=== PATIENT | female | born 1975 | race Two or more races ===

== ENCOUNTER 2025-01-04 17:38 | Emergency (ER) | payer OTHER ==
[~2025-01-04] VITALS: Ht 165.1 cm; Wt 73.6 kg
--- NOTE | 2025-01-04 18:28 | ED.PDOC ---
History of Present Illness HPI Comments 49 year old female came to ER due to dizziness. Patient has no medical problems. Comes to the ER with multiple complaints, states for the past 4 days she has been feeling dizzy and felt like the right side of her body felt numb. Denies any unilateral weakness. Also complaining of headaches, palpitations, epigastric pain and nausea. Denies any fever or urinary symptoms. Persistence of dizziness prompted check up at the ER. Chief Complaint: Dizziness Time Seen by MD: 18:27 Reviewed Notes: Nurses Notes Allergies: Coded Allergies: NO KNOWN ALLERGIES (Unverified , 01/04/25) Information Source: Patient Mode of Arrival: Ambulatory Severity: Moderate Timing: Days Duration: Since onset Prehospital treatment: None Review of Systems REVIEW OF SYSTEMS: No fever, no chills, or fatigue HEENT: No sore throat, no earache, no congestion, no neck pain. Cardiac: No chest pain. (+) palpitations. Lungs: No shortness of breath, no cough. GI: (+) nausea, no vomiting, no diarrhea, no constipation, (+) abdominal pain : No dysuria, frequency, or urgency. No hematuria. Musculoskeletal: No joint pain , no joint swelling, no extremity edema. Skin: No rash, no itching. Neuro: (+) headache, (+) dizziness, (+) right sided numbness, no weakness Vital Signs Vital Signs Date Time Temp Pulse Resp B/P (MAP) Pulse Ox O2 Delivery O2 Flow Rate FiO2 01/04/25 21:51 86 16 97 Room Air* 0 21 01/04/25 21:51 98.2 134/82 (99) 98.2 Physical Exam General: Awake, alert and oriented. No acute distress. Skin: Skin in warm, dry and intact. Appropriate color for ethnicity. Nailbeds pink with no cyanosis. HEENT: The head is normocephalic and atraumatic. Conjunctivae are clear without exudates or hemorrhage. Sclera is non-icteric. EOM are intact. No signs of nystagmus. Eyelids are normal in appearance without swelling or lesions. Oral mucosa is pink and moist Neck: The neck is supple with normal range of motion. No JVD. Cardiac: Heart rate and rhythm are normal. No murmurs, gallops, or rubs are auscultated. Respiratory: No signs of respiratory distress. Lung sounds are clear in all lobes bilaterally without rales, ronchi, or wheezes. Abdominal: Abdomen is soft, non-tender without distention. Bowel sounds are present and normoactive in all four quadrants. Extremities: Upper and lower extremities are atraumatic in appearance without deformity or edema. Neurological: The patient is awake, alert and oriented to person, place, and time with normal speech. Speech is clear. There is no facial asymmetry. Normal [id number] test. Patient reports diminished sensation on her right face, right upper extremity, right lower extremity. She has a normal gait. She is able to stand on each leg individually without difficulty. Psychiatric: Appropriate mood and affect. Good judgement and insight. No visual or auditory hallucinations. 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 Was a procedure done?: No Differential Dx Considerations may include: Differential diagnoses considered include but are not limited to anemia, el ectrolyte imbalance, TIA, CVA, gastritis, anxiety, ACS, migraine, viral syndrome, dehydration other X-Ray, Labs, Meds, VS Vital Signs Date Time Temp Pulse Resp B/P (MAP) Pulse Ox O2 Delivery O2 Flow Rate FiO2 01/04/25 21:51 86 16 97 Room Air* 0 21 01/04/25 21:51 98.2 85 16 134/82 (99) 97 98.2 01/04/25 18:36 98.2 74 16 119/80 (93) 97 Lab Test 01/04/25 18:53 01/04/25 18:23 Range/Units White Blood Count 9.5 4.4-10.8 10^3/uL Red Blood Count 4.55 4.0-5.20 10^6/uL Hemoglobin 14.1 12.2-16.2 g/dL Hematocrit 40.8 36.0-46.0 % Mean Corpuscular Volume 89.7 80.0-100.0 fL Mean Corpuscular Hemoglobin 31.1 28.0-32.0 pg Mean Corpuscular Hemoglobin Concent 34.7 32.0-36.0 g/dL Red Cell Distribution Width 13.6 11.8-14.3 % Platelet Count 322 140-450 10^3/uL Mean Platelet Volume 8.0 6.9-10.8 fL Neutrophils (%) (Auto) 57.9 37.0-80.0 % Lymphocytes (%) (Auto) 32.5 10.0-50.0 % Monocytes (%) (Auto) 6.1 0.0-12.0 % Eosinophils (%) (Auto) 2.7 0.0-7.0 % Basophils (%) (Auto) 0.8 0.0-2.0 % Neutrophils # (Auto) 5.5 1.6-8.6 10 ^3/uL Lymphocytes # (Auto) 3.1 0.4-5.4 10 ^3/uL Monocytes # (Auto) 0.6 0-1.3 10 ^3/uL Eosinophils # (Auto) 0.3 0-0.8 10 ^3/uL Basophils # (Auto) 0.1 0-0.2 10 ^3/uL Nucleated Red Blood Cells 0.2 % Sodium Level 141 136-145 mmol/L Potassium Level 4.1 3.5-5.1 mmol/L Chloride Level 107 98-107 mmol/L Carbon Dioxide Level 25 20-31 mmol/L Anion Gap 9 5-15 Blood Urea Nitrogen 13 9-23 mg/dL Creatinine 0.70 0.550-1.02 mg/dL Glomerular Filtration Rate Calc 107 >90 mL/min BUN/Creatinine Ratio 18.6 10.0-20.0 Serum Glucose 90 74-106 mg/dL Calcium Level 10.8 H 8.7-10.4 mg/dL Magnesium Level 2.2 1.6-2.6 mg/dL Total Bilirubin 0.5 0.2-1.0 mg/dL Aspartate Amino Transferase (AST) 24 13-40 U/L Alanine Aminotransferase (ALT) 33 7-40 U/L Alkaline Phosphatase 107 46-116 U/L Total Protein 7.5 5.7-8.2 g/dL Albumin 4.7 3.2-4.8 g/dL Lipase 44 12-53 U/L POC Glucose 107 H 70-106 mg/dl Current Medications Medications (Trade) Dose Ordered Sig/Obed Route Start Time Stop Time Status Last Admin Sodium Chloride 1,000 ml @ 1,000 mls/hr Q1H ONCE IV 01/04/25 18:30 01/04/25 19:29 DC 01/04/25 21:46 Ketorolac Tromethamine (Toradol Injection) 30 mg ONCE ONCE IV 01/04/25 18:30 01/04/25 18:31 DC 01/04/25 21:46 Meclizine HCl (Antivert Tablet) 50 mg ONCE ONCE PO 01/04/25 18:30 01/04/25 18:31 DC 01/04/25 21:46 X-Ray, Labs, Meds, VS Comment Chest x-ray-no acute disease Time of 1ST Reevaluation: 18:23 Reevaluation 1ST: Unchanged Patient Education/Counseling: Diagnosis, Treatment Family Education/Counseling: No Family Present Departure 1 Departure Time of Disposition: 00:54 Impression: Primary Impression: Dizziness Disposition: 01 HOME / SELF CARE / HOMELESS Condition: Stable Additional Instructions: INSTRUCCIONES DE CHAR DE Urgencias Instrucciones: Isabel atentamente todas las instrucciones proporcionadas en beny paquete. Aunque le hayan dado el char del Departamento de Emergencias, esto no significa que tenga un "certificado de buena may". Hoy no se salinas realizado ningn diagnstico definitivo para vasile sntomas. Es posible que ests en proceso de desarrollar onelia enfermedad grave. Es por eso que debe regresar al servicio de urgencias sin falta si presenta algn sntoma nuevo o que empeora (especialmente si vasile sntomas incluyen dolor en el pecho, dificultad para respirar, dolor abdominal, fiebre, dolor de jesús, confusin, dificultad para pantera o caminar). Tambin es muy importante que consulte a un mdico de atencin primaria dentro de los prximos 3 a 5 montanez para realizar un seguimiento. Si no puede conseguir onelia bandar, regrese al servicio de urgencias para onelia nueva evaluacin. Mareos o desmayos: instrucciones de cuidado Descripcin general El mareo es onelia sensacin de estar a punto de desmayarse o "perder el conocimiento". No se siente oliverio si hina mismo o lo que lo rodea se estuviera moviendo. Es diferente del vrtigo, que es la sensacin de que hina mismo o las cosas que lo rodean estn girando o inclinndose. El mareo suele desaparecer o mejorar cuando te recuestas. Si el mareo empeora, puede provocar un desmayo. Es comn sentirse mareado de vez en cuando. Puede deberse a muchas cosas, oliverio alergias, deshidratacin, enfermedades y medicamentos. El mareo no suele deberse a un problema grave, sino a onelia cada breve de la presin arterial y del flujo sanguneo a la jesús que se produce cuando hina se levanta demasiado rpido de onelia posicin sentada o acostada. El seguimiento mdico es onelia parte fundamental de moore tratamiento y moore seguridad. Asegrese de programar y acudir a todas las citas, y llame a moore mdico si tiene problemas. Tambin es onelia buena idea saber los resultados de vasile pruebas y llevar onelia lista de los medicamentos que herrera. Finger Buff Sewer puedes cuidarte en casa? Acustese michelle 1 o 2 minutos cuando sienta mareos. Despus de acostarse, sintese lentamente y permanezca sentado michelle 1 o 2 minutos antes de leva ntarse lentamente. Evite movimientos, posiciones o actividades que le hayan provocado mareos en el pasado. Descanse mucho, especialmente si tiene un resfriado o gripe, que pueden causar mareos. Asegrese de beber mucho lquido, especialmente si tiene fiebre o salinas estado sudando. No conduzca ni se ponga en peligro a s mismo ni a los dems si se siente mareado. Cundo debes pedir ayuda? Llame al 91 en cualquier momento en que crea que puede necesitar atencin de emergencia. Por ejemplo, llame si: Te desmayaste (perdiste el conocimiento). Tiene sntomas de un accidente cerebrovascular, que pueden incluir: Entumecimiento repentino, hormigueo, debilidad o prdida de movimiento en la justice, el brazo o la pierna, especialmente en un solo lado del cuerpo. Cambios repentinos en la visin. Dificultad repentina para hablar. Confusin repentina o dificultad para comprender afirmaciones simples. Problemas repentinos con la marcha o el equilibrio. Un dolor de jesús repentino y krystle que es diferente a los skip de jesús anteriores. Tiene sntomas de un ataque cardaco. Estos pueden incluir: Dolor o presin en el pecho, o onelia sensacin extraa en el pecho. Transpiracin. Dificultad para respirar. Nuseas o vmitos. Dolor, presin o onelia sensacin extraa en la espalda, el phil, la mandbula o la parte superior del abdomen o en hina o ambos hombros o brazos. Mareos o debilidad repentina. Un ritmo cardaco rpido o irregular. Despus de llamar al 91 , el operador puede indicarle que mastique 1 aspirina para adultos o de 2 a 4 aspirinas de dosis baja. Espere a que llegue onelia ambulancia. No intente conducir usted mismo. Preste atencin a los cambios en moore may y asegrese de comunicarse con moore mdico si: Moore mareo empeora o no mejora con el cuidado en casa. Crditos por mareos o desmayos: instrucciones de cuidado Actualizado al: 2023 Autor: Personal de Dano HernandezMODESTO devi Comments 49-year-old female who presents to the emergency department with headache, dizziness, right-sided numbness, abdominal pain, nausea. She denies any past medical history. No neuro deficit on exam. CTA shows no large vessel occlus ion. Patient well-appearing, nontoxic. Advised prompt follow-up with PCP, return to the ED with any new, worsening or concerning symptoms. Extensive evaluation was performed in attempt to identify or rule out: (See differential diagnosis section) The following tests were ordered, and results were reviewed by me: (See diagnostic results section) The following test were independently interpreted by me: EKG, chest x-ray I reviewed and agreed with the following test results read by other providers: N/A I reviewed the following notes from the pt's past medical encounters: N/A Additional information was gathered from interviewing the following independent historians: N/A Discussion of management or test interpretation with external physician/other qualified health hospice patient care secretary: N/A Decision regarding hospitalization or escalation of hospital level of care: Risks and benefits of admission for further treatment of patient's condition was considered however due to patient's stable condition patient will be discharged to follow up closely or return to care for worsening of condition or inability to follow up. Critical Care Note Critical Care Time?: No Stability Stability form required: No Heart Score Heart Score: Heart Score Response (Comments) Value History N/A 0 EKG N/A 0 Age N/A 0 Risk Factors N/A 0 Troponin N/A 0 Total 0 I personally scribed for DAVID SANCHEZ MD ([employer]) on 01/04/25 at 18:28. Electronically submitted by Marshall Willingham ([facility]). I personally scribed for DAVID SANCHEZ MD ([email or web address]) on 01/04/25 at 18:46. E lectronically submitted by Marshall Willingham ([email or web address]). DAVID SANCHEZ MD Jan 04, 2025 18:28
[2025-01-04 19:14] LABS: Basophils # (auto) 0.1 10 ^3/uL (0-0.2); Basophils % (auto) 0.8 % (0.0-2.0); Eosinophils # (auto) 0.3 10 ^3/uL (0-0.8); Eosinophils % (auto) 2.7 % (0.0-7.0); Hematocrit 40.8 % (36.0-46.0); Hemoglobin 14.1 g/dL (12.2-16.2); Lymphocytes # (auto) 3.1 10 ^3/uL (0.4-5.4); Lymphocytes % (auto) 32.5 % (10.0-50.0); Mean Corpuscular Hemoglobin 31.1 pg (28.0-32.0); Mean Corpuscular Hgb Conc. 34.7 g/dL (32.0-36.0); Mean Corpuscular Volume 89.7 fL (80.0-100.0); Monocytes # (auto) 0.6 10 ^3/uL (0-1.3); Monocytes % (auto) 6.1 % (0.0-12.0); Neutrophils # (auto) 5.5 10 ^3/uL (1.6-8.6); Neutrophils % (auto) 57.9 % (37.0-80.0); Nucleated Red Blood Cells % 0.2 %; Platelet Count (auto) 322 10^3/uL (140-450); Red Blood Cells 4.55 10^6/uL (4.0-5.20); Red Cell Distribution Width 13.6 % (11.8-14.3); White Blood Cell 9.5 10^3/uL (4.4-10.8)
[2025-01-04 19:26] LABS: Alanine Aminotransferase 33 U/L (7-40); Albumin 4.7 g/dL (3.2-4.8); Alkaline Phosphatase 107 U/L (46-116); Anion Gap 9 (5-15); Aspartate Aminotransferase 24 U/L (13-40); BUN/Creatinine Ratio 18.6 (10.0-20.0); Blood Urea Nitrogen 13 mg/dL (9-23); Carbon Dioxide 25 mmol/L (20-31); Glucose 90 mg/dL (74-106); Lipase 44 U/L (12-53); Magnesium 2.2 mg/dL (1.6-2.6); Potassium 4.1 mmol/L (3.5-5.1); Sodium 141 mmol/L (136-145)
[2025-01-04 19:27] LABS: Bilirubin, Total 0.5 mg/dL (0.2-1.0); Total Protein 7.5 g/dL (5.7-8.2)
[2025-01-04 19:36] LABS: Calcium 10.8 mg/dL (8.7-10.4); Chloride 107 mmol/L (98-107)
[2025-01-04] MEDS: KETOROLAC TROMETH 30 MG/ML 1ML VIAL IV ONE (21:46)
[2025-01-04] MEDS: SODIUM CHLORIDE 0.9% 1,000 ML IV ONE (21:46)
[2025-01-04] MEDS: MECLIZINE HCL 25 MG TAB PO ONE (21:46)
[2025-01-04] MEDS: IOHEXOL 350 MG/ML 100ML IJ ONE (21:47)
[2025-01-04 21:51] VITALS: PULSE 86; RESP 16; O2SAT 97
--- NOTE | 2025-01-04 22:32 | DVH ---
EXAM: CT ANGIO HEAD/NECK CLINICAL HISTORY: dizzy, RLE, RUE, R face numbness TECHNIQUE: CT angiogram of the head and neck was performed without and with intravenous contrast. 3D MIP reconstructed images were created and archived on the PACS system. This exam was performed accor ding to our departmental dose optimization program. Up-to-date CT equipment and radiation dose reduct ion techniques are utilized as appropriate. COMPARISON: None FINDINGS: CTA head: The ventricles and subarachnoid spaces are normal in size and configuration. The gross white matter in terfaces are maintained There is no midline shift or mass effect. There is no evidence of acute intra cranial hemorrhage. The basal cisterns are patent. The calvarium is intact. The distal internal carotid, vertebral, and basilar arteries are patent without focal narrowing or oc clusion. The anterior, middle, and posterior cerebral arteries are patent without focal narrowing. No aneurysm or arteriovenous malformation is identified. CTA neck: The aortic arch vessel origins are widely patent. The common carotid and cervical portions of the int ernal carotid and vertebral arteries are patent without focal narrowing according to NASCET criteria. No aneurysm, AVM, or dissection is identified. The cervical soft tissues are unremarkable. The paranasal sinus and mastoid air cells are clear aside from mucous retention cyst or polyp in the left sphenoid sinus. The lung apices are clear. IMPRESSION: 1. No acute intracranial abnormality. 2. Widely patent arteries in the head and neck without large vessel occlusion, significant stenosis, aneurysm, AVM, or dissection.
--- NOTE | 2025-01-05 00:34 | ECG ---
[facility] Test Date: 2025-01-04 Test Time: 18:37:31 Pat Name: AUGUSTINE WEATHERS Department: ER Room: Gender: F Allergist: MALDONADO : 1975 Requested By: DAVID SANCHEZ Order Number: [id number] Reading MD: Aric Mccartney Measurements Intervals [place] Rate: 73 P: 42 [place]: 167 QRS: 13 QRSD: 83 T: 29 QT: 392 QTc: 432 Interpretive Statements Sinus rhythm Low voltage, precordial leads Electronically Signed On 01-05-2025 12:11:28 PST by Aric Mccartney Please click the below link to view image of tracing.
[2025-01-05 02:24] VITALS: BP 124/83; PULSE 63; RESP 20; TEMP 98.3; O2SAT 100
[2025-01-05 03:18] LABS: Urine Bacteria None Seen /hpf (None Seen)
[2025-01-05 03:37] LABS: Urine Blood Negative /uL (Negative); Urine Clarity Clear (Clear); Urine Color Light-Yellow (Yellow); Urine Protein, UAD TRACE (Negative); Urine Squamous Epithelial Cell FEW /hpf (<5); Urine Urobilinogen Normal (Negative); Urine WBC 1 /HPF (0-5)
[2025-01-05 03:45] LABS: Urine Specific Gravity > 1.050 (1.001-1.035)
--- NOTE | 2025-01-05 05:55 | DVH ---
EXAM: XR Chest, 1 View CLINICAL INDICATION: dizziness TECHNIQUE: Frontal view of the chest. COMPARISON: None FINDINGS: LUNGS AND PLEURAL SPACES: Pulmonary venous congestion. No consolidation. No pneumothorax. HEART: Unremarkable. No cardiomegaly. MEDIASTINUM: Unremarkable. Normal mediastinal contour. BONES/JOINTS: Unremarkable. No acute fracture. OTHER FINDINGS: . None. . .. IMPRESSION: Pulmonary venous congestion.
== END 2025-01-05 03:50 | disposition home or self-care (01) ==
LOC: ER 17:38
DX: R42 Dizziness and giddiness (principal); R00.2 Palpitations; Z98.890 Other specified postprocedural states; Z79.899 Other long term (current) drug therapy
CPT/HCPCS: 36415; 70496; 70498; 71045; 80053; 81001; 82962; 83690; 83735; 85025; 93005; 96361; 96374; 99285; J1885; J7030; J8597; Q9967

== ENCOUNTER 2025-03-17 21:33 | Emergency (ER) | payer OTHER ==
[~2025-03-17] VITALS: Ht 154.9 cm; Wt 72.3 kg
[2025-03-17 21:50] VITALS: BP 152/80; PULSE 71; RESP 18; TEMP 98.1; O2SAT 99
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
[2025-03-17] MEDS ORDERED: TIZA-142 PO (23:02)
[2025-03-17] MEDS ORDERED: METH4PAK PO (23:02)
[2025-03-17] MEDS: HYDROcodone-ACET 5/325MG TAB PO ONE (23:21)
[2025-03-17] MEDS: KETOROLAC TROMETH 60MG/2ML VIAL IM ONE (23:24)
== END 2025-03-17 23:35 | disposition home or self-care (01) ==
LOC: ER 21:33
DX: S19.9XXA Unspecified injury of neck, initial encounter (principal); S29.012A Strain of muscle and tendon of back wall of thorax, initial encounter; Z98.890 Other specified postprocedural states; V89.2XXA Person injured in unspecified motor-vehicle accident, traffic, initial encounter; Y93.89 Activity, other specified; Y92.410 Unspecified street and highway as the place of occurrence of the external cause; Y99.8 Other external cause status
CPT/HCPCS: 72040; 72070; 96372; 99284; J1885

== ENCOUNTER 2025-08-27 15:44 | Emergency (ER) | payer OTHER ==
[~2025-08-27] VITALS: Ht 165.1 cm; Wt 73.3 kg
[2025-08-27 15:45] VITALS: BP 111/74; PULSE 76; RESP 18; TEMP 97.8; O2SAT 99
--- NOTE | 2025-08-27 16:19 | ED.PDOC ---
History of Present Illness HPI Comments 50 year old female presents to the ED with a chief compliant of RT sided numbness onset 1 month. Patient states she has been experiencing RT sided numbness/tingling for the past month. She also states she has been experiencing palpitations for the past 2 days, woke up this morning experiencing stabbing sensation RT eye and well as numbness of RT fingertips. PMHx anxiety. Denies shortness of breath, nausea, vomiting, diarrhea, headache, dizziness, blurry vision, changes in vision, fall, injury. No other symptoms or modifying factors present at this time. 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 Family History Family History: Reviewed,noncontributory to illness Social History Smoker: Non-Smoker Alcohol: Denies ETOH Use Drugs: Denies Drug Use Lives In: Home Constitutional: denies: chills, diaphoresis, fatigue, fever, malaise, sweats, weakness, others EENTM: reports: eye pain (RT); denies: blurred vision, double vision, ear bleeding, ear discharge, ear drainage, ear pain, ear ringing, eye redness, hearing loss, mouth pain, mouth swelling, nasal discharge, nose bleeding, nose congestion, nose pain, photophobia, tearing, throat pain, throat swelling, voice changes, others Respiratory: denies: cough, hemoptysis, orthopnea, SOB at rest, shortness of breath, SOB with excertion, stridor, wheezing, others Cardiovascular: reports: palpitations; denies: chest pain, dizzy spells, diaphoresis, Dyspnea on exertion, edema, irregular heart beat, left arm pain, lightheadedness, PND, syncope, others Gastrointestinal: denies: abdomen distended, abdominal pain, blood streaked bowels, constipated, diarrhea, dysphagia, difficulty swallowing, hematemesis, melena, nausea, poor appetite, poor fluid intake, rectal bleeding, rectal pain, vomiting, others Genitourinary: denies: abnormal vagina bleeding, burning, dyspareunia, dysuria, flank pain, frequency, hematuria, incontinence, pain, , vagina discharge, urgency, others Neurological: reports: right sided numbness, tingling (RT sided); denies: dizziness, fainting, headache, left sided numbness, left sided weakness, numbness, paresthesia, pre-existing deficit, right sided weakness, seizure, speech problems, tremors, weakness, others Musculoskeletal: denies: back pain, gout, joint pain, joint swelling, muscle pain, muscle stiffness, neck pain, others Integumetry: denies: bruises, change in color, change in hair/nails, dryness, laceration, lesions, lumps, rash, wounds, others Allergic/Immunocompromised: denies: Difficulty Healing, Frequent Infections, Hives, Itching, others Hematologic/Lymphatic: denies: anemia, blood clots, easy bleeding, easy bruising, swollen glands, others Endocrine: denies: excessive hunger, excessive sweating, excessive thirst, excessive urination, flushing, intolerance to cold, intolerance to heat, unexplained weight gain, unexplained weight loss, others Psychiatric: denies: anxiety, bipolar disorder, depression, hopeless, panic disorder, schizophrenia, sleepless, suicidal, others All Other Systems: Reviewed and Negative Physical Exam General Appearance: Normal HEENT: Normal ENT Inspection, Pharynx Normal, TMs Normal Neck: Full Range of Motion, Non-Tender, Normal, Normal Inspection Respiratory: Chest Non-Tender, Lungs Clear, No Accessory Muscle Use, No Respiratory Distress, Normal Breath Sounds Cardiovascular: No Edema, No JVD, No Murmur, No Gallop, Normal Peripheral Pulses, Regular Rate/Rhythm Breast Exam: Deferred Gastrointestinal: No Organomegaly, Non Tender, No Pulsatile Mass, Normal Bowel Sounds, Soft Genitalia: Deferred Pelvic: Deferred Rectal: Deferred Extremities: No calf tenderness, Normal capillary refill, Normal inspection, Normal range of motion, Non-tender, No pedal edema Musculoskeletal : Apperance: Normal Neurologic: Alert, quality assurance director II-XII nml as Tested, No Motor Deficits, Normal Affect, Normal Mood, No Sensory Deficits Cerebellar Function: Normal Reflexes: Normal Skin: Dry, Normal Color, Warm Lymphatic: No Adenopathy Was a procedure done? Was a procedure done?: No X-Ray, Labs, Meds, VS Vital Signs Date Time Temp Pulse Resp B/P (MAP) Pulse Ox O2 Delivery O2 Flow Rate FiO2 08/27/25 15:45 97.8 76 18 111/74 99 97.8 Time of 1ST Reevaluation: 16:35 Reevaluation 1ST: Unchanged Patient Education/Counseling: Diagnosis, Treatment, Prognosis Family Education/Counseling: No Family Present SEPSIS Sepsis Screen Date sepsis recognized/suspect: Aug 27, 2025 Time Sepsis recognized/suspect: 1545 Recent Procedure: No On Antibiotic Therapy: No Respiratory Rate >20: No Heart Rate >90: No Temp<36 C (96.8 F) or >38.3 C: No SBP <90 or MAP <65 mmHG: No New Acute Mental Status Change: No Is the patient on CPAP, BIPAP,: No Physician Orders Complete Blood Count (08/27/25 16:21) Comprehensive Metabolic Panel (08/27/25 16:21) Troponin-I Hs (08/27/25 16:21) Urinalysis (08/27/25 16:21) Chest Xray 1 View (08/27/25 16:21) Head Without Contrast (08/27/25 16:21) Troponin-I Hs (08/27/25 17:21) Troponin-I Hs (08/27/25 19:21) Vital Signs Date Time Temp Pulse Resp B/P (MAP) Pulse Ox O2 Delivery O2 Flow Rate FiO2 08/27/25 15:45 97.8 76 18 111/74 99 97.8 Critical Care Note Critical Care Time?: No Stability Stability form required: No I personally scribed for GARY BRENNAN MD ([email or web address]) on 08/27/25 at 16:19. Electronically submitted by Porsche Ortiz ([email or web address]). I personally scribed for GARY BRENNAN MD ([email or web address]) on 08/27/25 at 16:28. Electronically submitted by Porsche Ortiz ([email or web address]). GARY BRENNAN MD Aug 27, 2025 16:19
--- NOTE | 2025-08-27 16:30 | ED.PDOC ---
History of Present Illness HPI Comments 50 year old female presents to the ED with a chief compliant of RT sided numbness onset 1 month. Patient states she has been experiencing RT sided numbness/tingling for the past month. She also states she has been experiencing palpitations for the past 2 days, woke up this morning experiencing stabbing sensation RT eye and well as numbness of RT fingertips. PMHx anxiety. Denies shortness of breath, nausea, vomiting, diarrhea, headache, dizziness, blurry vision, changes in vision, fall, injury. No other symptoms or modifying factors present at this time. 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 Family History Family History: Reviewed,noncontributory to illness Social History Smoker: Non-Smoker Alcohol: Denies ETOH Use Drugs: Denies Drug Use Lives In: Home Constitutional: denies: chills, diaphoresis, fatigue, fever, malaise, sweats, weakness, others EENTM: reports: eye pain; denies: blurred vision, double vision, ear bleeding, ear discharge, ear drainage, ear pain, ear ringing, eye redness, hearing loss, mouth pain, mouth swelling, nasal discharge, nose bleeding, nose congestion, nose pain, photophobia, tearing, throat pain, throat swelling, voice changes, others Respiratory: denies: cough, hemoptysis, orthopnea, SOB at rest, shortness of breath, SOB with excertion, stridor, wheezing, others Cardiovascular: reports: palpitations; denies: chest pain, dizzy spells, diaphoresis, Dyspnea on exertion, edema, irregular heart beat, left arm pain, lightheadedness, PND, syncope, others Gastrointestinal: denies: abdomen distended, abdominal pain, blood streaked bowels, constipated, diarrhea, dysphagia, difficulty swallowing, hematemesis, melena, nausea, poor appetite, poor fluid intake, rectal bleeding, rectal pain, vomiting, others Genitourinary: denies: abnormal vagina bleeding, burning, dyspareunia, dysuria, flank pain, frequency, hematuria, incontinence, pain, , vagina discharge, urgency, others Neurological: reports: tingling; denies: dizziness, fainting, headache, left sided numbness, left sided weakness, numbness, paresthesia, pre-existing deficit, right sided numbness, right sided weakness, seizure, speech problems, tremors, weakness, others Musculoskeletal: denies: back pain, gout, joint pain, joint swelling, muscle pain, muscle stiffness, neck pain, others Integumetry: denies: bruises, change in color, change in hair/nails, dryness, laceration, lesions, lumps, rash, wounds, others Allergic/Immunocompromised: denies: Difficulty Healing, Frequent Infections, Hives, Itching, others Hematologic/Lymphatic: denies: anemia, blood clots, easy bleeding, easy bruising, swollen glands, others Endocrine: denies: excessive hunger, excessive sweating, excessive thirst, excessive urination, flushing, intolerance to cold, intolerance to heat, unexplained weight gain, unexplained weight loss, others Psychiatric: denies: anxiety, bipolar disorder, depression, hopeless, panic disorder, schizophrenia, sleepless, suicidal, others All Other Systems: Reviewed and Negative Physical Exam General Appearance: Normal HEENT: Normal ENT Inspection, Pharynx Normal, TMs Normal Neck: Full Range of Motion, Non-Tender, Normal, Normal Inspection Respiratory: Chest Non-Tender, Lungs Clear, No Accessory Muscle Use, No Respiratory Distress, Normal Breath Sounds Cardiovascular: No Edema, No JVD, No Murmur, No Gallop, Normal Peripheral Pulses, Regular Rate/Rhythm Breast Exam: Deferred Gastrointestinal: No Organomegaly, Non Tender, No Pulsatile Mass, Normal Bowel Sounds, Soft Genitalia: Deferred Pelvic: Deferred Rectal: Deferred Extremities: No calf tenderness, Normal capillary refill, Normal inspection, Normal range of motion, Non-tender, No pedal edema Musculoskeletal : Apperance: Normal Neurologic: Alert, bolt cutter II-XII nml as Tested, No Motor Deficits, Normal Affect, Normal Mood, No Sensory Deficits Cerebellar Function: Normal Reflexes: Normal Skin: Dry, Normal Color, Warm Lymphatic: No Adenopathy Was a procedure done? Was a procedure done?: No Differential Dx Considerations may include: Being attacked, CVA, TIA, X-Ray, Labs, Meds, VS Vital Signs Date Time Temp Pulse Resp B/P (MAP) Pulse Ox O2 Delivery O2 Flow Rate FiO2 08/27/25 15:45 97.8 76 18 111/74 99 97.8 Lab Test 08/27/25 17:46 08/27/25 16:30 Range/Units Troponin I High Sensitivity < 3 L < 3 L </=34 ng/L White Blood Count 13.0 H 4.4-10.8 10^3/uL Red Blood Count 4.45 4.0-5.20 10^6/uL Hemoglobin 13.7 12.2-16.2 g/dL Hematocrit 39.5 36.0-46.0 % Mean Corpuscular Volume 88.7 80.0-100.0 fL Mean Corpuscular Hemoglobin 30.8 28.0-32.0 pg Mean Corpuscular Hemoglobin Concent 34.7 32.0-36.0 g/dL Red Cell Distribution Width 13.3 11.8-14.3 % Platelet Count 308 140-450 10^3/uL Mean Platelet Volume 7.7 6.9-10.8 fL Neutrophils (%) (Auto) 64.9 37.0-80.0 % Lymphocytes (%) (Auto) 26.4 10.0-50.0 % Monocytes (%) (Auto) 6.6 0.0-12.0 % Eosinophils (%) (Auto) 1.7 0.0-7.0 % Basophils (%) (Auto) 0.4 0.0-2.0 % Neutrophils # (Auto) 8.5 1.6-8.6 10 ^3/uL Lymphocytes # (Auto) 3.4 0.4-5.4 10 ^3/uL Monocytes # (Auto) 0.9 0-1.3 10 ^3/uL Eosinophils # (Auto) 0.2 0-0.8 10 ^3/uL Basophils # (Auto) 0.1 0-0.2 10 ^3/uL Nucleated Red Blood Cells 0.0 % Sodium Level 143 136-145 mmol/L Potassium Level 4.1 3.5-5.1 mmol/L Chloride Level 107 98-107 mmol/L Carbon Dioxide Level 27 20-31 mmol/L Anion Gap 9 5-15 Blood Urea Nitrogen 8 L 9-23 mg/dL Creatinine 0.90 0.550-1.02 mg/dL Glomerular Filtration Rate Calc 78 >90 mL/min BUN/Creatinine Ratio 8.9 L 10.0-20.0 Serum Glucose 89 74-106 mg/dL Calcium Level 9.8 8.7-10.4 mg/dL Total Bilirubin 0.4 0.2-1.0 mg/dL Aspartate Amino Transferase (AST) 19 13-40 U/L Alanine Aminotransferase (ALT) 25 7-40 U/L Alkaline Phosphatase 126 H 46-116 U/L Total Protein 7.4 5.7-8.2 g/dL Albumin 4.4 3.2-4.8 g/dL [place] [id number] Ph: [phone] DIAGNOSTIC IMAGING Diagnostic Imaging Report : [id number] Signed PATIENT: AUGUSTINE WEATHERS ACCT: [id number] UNIT: [id number] : 1975 LOC: ER ROOM / BED: / AGE / SEX: 50 / F ADM STATUS: REG ER SERVICE 1621 ORDERING PHYSICIAN: UMU TORRES PROCEDURE(s): HWOCT - HEAD WITHOUT CONTRAST REASON: numbness ORDER NUMBER(s): [id number], ACCESSION NUMBER(s): [id number] CLINICAL HISTORY: numbness TECHNIQUE: Helical scanning was performed of the head from the skull base to the vertex. Multiplanar reconstructions were performed. This exam was performed according to our departmental dose optimization program. Up-to-date CT equipment and radiation dose reduction techniques are utilized as appropriate. CTDI 52.4 DLP 838 COMPARISON: CT ANGIO HEAD/NECK on DOS: 01/04/25 FINDINGS: There is no evidence for acute intracranial hemorrhage, acute ischemic changes, mass, mass effect, or extra-axial fluid collection. There is no hydrocephalus or midline shift. There is no effacement of the cerebral sulci and basal subarachnoid cisterns. The gross-white matter differentiation is well maintained. The imaged paranasal sinuses are clear. IMPRESSION: NO ACUTE INTRACRANIAL ABNORMALITY SEEN. ATED BY: MAGDA CHRISTIE MD DICTATED DATE/TIME: 08/27/251701 SIGNED BY: MAGDA CHRISTIE MD SIGNED DATE/TIME: 08/27/251701 CC: [place] [id number] Ph: [phone] DIAGNOSTIC IMAGING Diagnostic Imaging Report : [id number] Signed PATIENT: AUGUSTINE WEATHERS ACCT: [id number] UNIT: [id number] : 1975 LOC: ER ROOM / BED: / AGE / SEX: 50 / F ADM STATUS: REG ER SERVICE 1621 ORDERING PHYSICIAN: UMU TORRES PROCEDURE(s): CXR1 - CHEST XRAY 1 VIEW REASON: cp ORDER NUMBER(s): [id number], ACCESSION NUMBER(s): [id number] CLINICAL HISTORY: cp TECHNIQUE: Single view of the chest was obtained. COMPARISON: XY CHEST PORTABLE on DOS: 01/04/25 FINDINGS: The heart size and pulmonary vasculature are normal. The lungs are clear. IMPRESSION: NO ACUTE CARDIOPULMONARY PROCESS. ATED BY: MAGDA CHRISTIE MD DICTATED DATE/TIME: 08/27/251701 SIGNED BY: MAGDA CHRISTIE MD SIGNED DATE/TIME: 08/27/251701 CC: X-Ray, Labs, Meds, VS Comment Imaging was reviewed by this provider, there is no obvious pathological or acute disease process. Pending radiology review Labs were reviewed by this provider, no abnormalities Vital signs reviewed by this provider, clinically stable Time of 1ST Reevaluation: 16:40 Reevaluation 1ST: Unchanged Patient Education/Counseling: Diagnosis, Treatment, Prognosis, Need For Follow Up (Follow up with PCP next available appointment. Return emergency department if symptoms worsen.) Family Education/Counseling: No Family Present SEPSIS Sepsis Screen Date sepsis recognized/suspect: Aug 27, 2025 Time Sepsis recognized/suspect: 1545 Recent Procedure: No On Antibiotic Therapy: No Respiratory Rate >20: No Heart Rate >90: No Temp<36 C (96.8 F) or >38.3 C: No SBP <90 or MAP <65 mmHG: No New Acute Mental Status Change: No Is the patient on CPAP, BIPAP,: No Physician Orders Urinalysis (08/27/25 16:21) Chest Xray 1 View (08/27/25 16:21) Head Without Contrast (08/27/25 16:21) Troponin-I Hs (08/27/25 19:21) Vital Signs Date Time Temp Pulse Resp B/P (MAP) Pulse Ox O2 Delivery O2 Flow Rate FiO2 08/27/25 15:45 97.8 76 18 111/74 99 97.8 Laboratory Tests Test 08/27/25 16:30 White Blood Count 13.0 10^3/uL (4.4-10.8) H Departure 1 Departure Time of Disposition: 16:35 Impression: Primary Impression: Radiculopathy Qualified Codes: M54.12 - Radiculopathy, cervical region Additional Impressions: Stress disorder, acute Dizziness Disposition: HOME / SELF CARE / HOMELESS Condition: Fair e-Prescriptions Ibuprofen Micronized (Ibuprofen) 600 Mg Tab 600 MG PO TID, #40 TAB Prov: UMU TORRES COTTON HEADER 08/27/25 Baclofen (Baclofen) 10 Mg Tab 10 MG PO TID PRN, #30 TAB Prov: UMU TORRES COTTON HEADER 08/27/25 Discharged With: Self Critical Care Note Critical Care Time?: No Stability Stability form required: No Heart Score Heart Score: Heart Score Response (Comments) Value History N/A 0 EKG N/A 0 Age N/A 0 Risk Factors N/A 0 Troponin N/A 0 Total 0 I personally scribed for UMU TORRES COTTON HEADER ([email or web address]) on 08/27/25 at 16:30. Electronically submitted by Porsche Ortiz ([email or web address]). I personally scribed for UMU TORRES COTTON HEADER ([email or web address]) on 08/27/25 at 17:24. Electronically submitted by Porsche Ortiz ([email or web address]). UMU TORRES COTTON HEADER Aug 27, 2025 16:30
[2025-08-27 16:43] LABS: Hematocrit 39.5 % (36.0-46.0); Hemoglobin 13.7 g/dL (12.2-16.2); Mean Corpuscular Hemoglobin 30.8 pg (28.0-32.0); Mean Corpuscular Volume 88.7 fL (80.0-100.0); Nucleated Red Blood Cells % 0.0 %
[2025-08-27 17:02] LABS: Alanine Aminotransferase 25 U/L (7-40); Albumin 4.4 g/dL (3.2-4.8); Alkaline Phosphatase 126 U/L (46-116); Anion Gap 9 (5-15); BUN/Creatinine Ratio 8.9 (10.0-20.0); Bilirubin, Total 0.4 mg/dL (0.2-1.0); Blood Urea Nitrogen 8 mg/dL (9-23); Calcium 9.8 mg/dL (8.7-10.4); Carbon Dioxide 27 mmol/L (20-31); Chloride 107 mmol/L (98-107); Glucose 89 mg/dL (74-106); Potassium 4.1 mmol/L (3.5-5.1); Sodium 143 mmol/L (136-145); Total Protein 7.4 g/dL (5.7-8.2)
--- NOTE | 2025-08-27 17:04 | DVH ---
CLINICAL HISTORY: numbness TECHNIQUE: Helical scanning was performed of the head from the skull base to the vertex. Multiplanar reconstructions were performed. This exam was performed according to our departmental dose optimizat ion program. Up-to-date CT equipment and radiation dose reduction techniques are utilized as appropri ate. CTDI 52.4 DLP 838 COMPARISON: CT ANGIO HEAD/NECK on DOS: 01/04/25 FINDINGS: There is no evidence for acute intracranial hemorrhage, acute ischemic changes, mass, mass effect, or extra-axial fluid collection. There is no hydrocephalus or midline shift. There is no effacement of the cerebral sulci and basal subarachnoid cisterns. The gross-white matter differentiation is well masha ntained. The imaged paranasal sinuses are clear. IMPRESSION: NO ACUTE INTRACRANIAL ABNORMALITY SEEN.
--- NOTE | 2025-08-27 17:05 | DVH ---
CLINICAL HISTORY: cp TECHNIQUE: Single view of the chest was obtained. COMPARISON: XY CHEST PORTABLE on DOS: 01/04/25 FINDINGS: The heart size and pulmonary vasculature are normal. The lungs are clear. IMPRESSION: NO ACUTE CARDIOPULMONARY PROCESS.
[2025-08-27] MEDS ORDERED: IBUP1TAB5 PO (18:52)
[2025-08-27] MEDS ORDERED: BACL10TA PO (18:52)
[2025-08-27 20:18] LABS: Urine Protein, UAD Negative (Negative)
== END 2025-08-27 19:05 | disposition home or self-care (01) ==
LOC: ER 15:44
DX: M54.12 Radiculopathy, cervical region (principal); F43.0 Acute stress reaction; R42 Dizziness and giddiness
CPT/HCPCS: 36415; 70450; 71045; 80053; 81001; 84484; 85025